=== PATIENT | female | born 1975 | race Asian ===

== ENCOUNTER 2021-10-28 19:54 | Emergency (ER) | payer BC ==
[~2021-10-28] VITALS: Ht 162.6 cm; Wt 88.0 kg
[2021-10-28 21:15] VITALS: BP 142/92; TEMP 97.9
== END 2021-10-28 21:22 | disposition home or self-care (01) ==
LOC: ED 19:54
PROC: 0HQGXZZ Repair Left Hand Skin, External Approach (ICD-10-PCS; principal; 2021-10-28)
DX: S61.012A Laceration without foreign body of left thumb without damage to nail, initial encounter (principal); W25.XXXA Contact with sharp glass, initial encounter; Y92.028 Other place in mobile home as the place of occurrence of the external cause
CPT/HCPCS: 90471; 90715; 96372; 99283; 99284